=== PATIENT | male | born 2000 | race Caucasian/White ===

== ENCOUNTER 2022-08-17 07:31 | Inpatient (IN) | payer MEDICAID ==
[~2022-08-17] VITALS: Ht 160 cm; Wt 48.0 kg
[2022-08-17] MEDS ORDERED: LORazepam 2 MG/ML VIAL IVP ONE (07:45)
[2022-08-17] MEDS ORDERED: ONDANSETRON HCL 4 MG/2 ML VIAL IVP ONE (07:45)
[2022-08-17] MEDS ORDERED: SODIUM CHLORIDE 0.9% 1,000 ML IV ONE (07:45)
[2022-08-17 07:52] LABS: BASOPHILS % (AUTO) 0.2 % (0.0-2.0); EOSINOPHILS % (AUTO) 0.2 % (1.0-6.0); HEMATOCRIT 50.4 % (41-53); HEMOGLOBIN 17.4 g/dL (13.5-17.5); LYMPHOCYTES # (AUTO) 0.9 K/uL (1.0-4.8); LYMPHOCYTES % (AUTO) 4.9 % (22.0-44.0); MEAN CORPUSCULAR HEMOGLOBIN 30.7 pg (26.0-34.0); MEAN CORPUSCULAR HGB CONC 34.5 G/dL (31.0-37.0); MEAN CORPUSCULAR VOLUME 89 fL (80-100); MONOCYTES # (AUTO) 1.5 K/uL (0.1-1.0); MONOCYTES % (AUTO) 8.3 % (2.0-9.0); NEUTROPHILS # (AUTO) 15.1 K/uL (1.8-7.7); PLATELET COUNT (AUTO) 323 K/uL (150-450); RED BLOOD CELL COUNT(AUTO) 5.66 MIL/uL (4.50-5.90); RED CELL DISTRIBUTION WIDTH 13.7 % (11.5-14.5)
[2022-08-17 07:54] LABS: NEUTROPHILS % (AUTO) 86.4 % (40.0-70.0)
[2022-08-17 08:07] LABS: ANION GAP 29 mmol/L (8-16); CALCIUM, TOTAL 10.3 mg/dL (8.8-10.5); CARBON DIOXIDE 25 mmol/L (22-29); CHLORIDE 84 mmol/L (98-107); CREATININE 3.98 mg/dL (0.60-1.30); GLOMERULAR FILTR. RATE CALC 19 mL/min (>60); GLUCOSE,RANDOM 191 mg/dL (70-110); SODIUM SERUM 138 mmol/L (136-145); UREA NITROGEN, BLOOD 65 mg/dL (7-18)
[2022-08-17 08:12] LABS: ALANINE AMINOTRANSFERASE 29 U/L (12-78); ALBUMIN 6.1 g/dL (3.4-5.0); ALKALINE PHOSPHATASE 125 U/L (46-116); ASPARTATE AMINOTRANSFERASE 20 U/L (15-37); BILIRUBIN,TOTAL 2.2 mg/dL (0.1-1.0); LIPASE 62 U/L (73-393); TOTAL PROTEIN, SERUM 10.5 g/dL (6.4-8.2)
[2022-08-17] MEDS ORDERED: PIPERACILLIN/TAZO 3.375 GM/D5W 50 ML IV ONE (08:30)
[2022-08-17] MEDS ORDERED: 0.9% SODIUM CHLORIDE 10 ML SYRINGE IVP PRN (08:30)
[2022-08-17] MEDS ORDERED: SODIUM CHLORIDE 0.9% 1,450 ML IV ONE (08:30)
[2022-08-17 09:00] LABS: COVID AG,FIA SOURCE NASAL SWAB
[2022-08-17 09:12] LABS: ABG BASE EXCESS 4.8 mmol/L (-2.0-3.0); ABG CARBOXYHEMOGLOBIN 0.7 % (0.0-3.0); ABG HCO3 28.8 mmol/L (22.0-26.0); ABG OXYGEN CONTENT 19.8 mL/dL (15.0-23.0); ABG OXYGEN SATURATION 93.8 % (95.0-98.0); ABG OXYHEMOGLOBIN 93.1 % (94.0-100.0); ABG PCO2 35 mmHg (35-45); ABG TOTAL HEMOGLOBIN 15.1 G/dL (12.0-18.0); SOURCE, BLOOD GAS ARTERIAL; TEMPERATURE, FAHRENHEIT, BG 98.2 FAHREN (96.0-98.6)
[2022-08-17 09:13] LABS: SITE, BLOOD GAS LFT BRACHIAL
[2022-08-17 09:16] LABS: ACETONE,BLOOD NEGATIVE (NEGATIVE)
[2022-08-17 09:20] LABS: INR 1.2 (0.9-1.1); PROTHROMBIN TIME 12.5 SEC (9.4-11.6)
[2022-08-17 09:25] LABS: LACTIC ACID 6.6 mmol/L (0.4-2.0)
[2022-08-17] MEDS ORDERED: POTASSIUM CHLORIDE 20 MEQ ER TABLET PO ONE (09:30)
[2022-08-17] MEDS ORDERED: POTASSIUM CHL 10 MEQ/WATER 50 ML IV ONE (09:30)
[2022-08-17 09:35] LABS: INFLUENZA TYPE A NEGATIVE FOR TYPE A (NEGATIVE); INFLUENZA TYPE B NEGATIVE FOR TYPE B (NEGATIVE)
[2022-08-17 09:38] LABS: APPEARANCE,URINE CLEAR (CLEAR); BILIRUBIN,URINE NEGATIVE (NEGATIVE); GLUCOSE, URINE (UA) TRACE mg/dL (NEGATIVE); LEUKOCYTE ESTERASE ,URINE NEGATIVE (NEGATIVE); NITRATE,URINE NEGATIVE (NEGATIVE); OCCULT BLOOD,URINE SMALL (NEGATIVE); PH,URINE 5.5 (5.0-8.0); PROTEIN,URINE 100-200,SEE CONFIRM mg/dL (NEGATIVE); UROBILINOGEN,URINE <=1.0 mg/dL (<=1.0)
[2022-08-17 09:40] LABS: SALICYLATE < 0.2 mg/dL (2.8-20.0)
[2022-08-17 09:42] LABS: CREATINE KINASE, TOTAL ONLY 148 U/L (39-308)
[2022-08-17 09:43] LABS: ACETAMINOPHEN < 2 mcg/mL (10-30)
[2022-08-17 09:46] LABS: AMPHET/METH SCREEN,URINE NEGATIVE (NEGATIVE); BARBITURATE SCREEN, URINE NEGATIVE (NEGATIVE); BENZODIAZEPINES SCREEN,URINE NEGATIVE (NEGATIVE); CANNABINOID SCREEN,URINE POSITIVE (NEGATIVE); COCAINE SCREEN,URINE NEGATIVE (NEGATIVE); METHADONE SCREEN, URINE NEGATIVE (NEGATIVE); OPIATE SCREEN,URINE NEGATIVE (NEGATIVE); PHENCYCLIDINE SCREEN,URINE NEGATIVE (NEGATIVE)
[2022-08-17 09:53] LABS: SULFOSALICYLIC ACID,URINE Trace (Negative)
[2022-08-17 09:54] LABS: BACTERIA,URINE None Seen /HPF (None Seen); HYALINE CASTS, URINE 0-2 /LPF (None Seen); WBC,URINE 0-2 /HPF (0-5)
[2022-08-17 10:51] LABS: CALCIUM, TOTAL 8.3 mg/dL (8.8-10.5); CREATININE 2.83 mg/dL (0.60-1.30); POTASSIUM 3.1 mmol/L (3.5-5.1)
[2022-08-17 10:55] LABS: PHOSPHORUS 5.4 mg/dL (2.5-4.9)
[2022-08-17] MEDS ORDERED: ACETAMINOPHEN 325 MG TABLET PO PRN ×2 (11:00→13:30)
[2022-08-17] MEDS ORDERED: ONDANSETRON HCL 4 MG/2 ML VIAL IVP PRN ×2 (11:00→13:30)
[2022-08-17 13:30] VITALS: BP 110/68
[2022-08-17] MEDS ORDERED: MAGNESIUM SULFATE 2 GM, MVI, ADULT NO.1 WITH VIT K 10 ML, THIAMINE 100 MG, FOLIC ACID 1... IV ONE ×5 (13:30)
[2022-08-17] MEDS ORDERED: MAGNESIUM HYDROXIDE SUSPENSION 30 ML UDCUP PO PRN (13:30)
[2022-08-17] MEDS ORDERED: LORazepam 2 MG TABLET PO PRN (13:30)
[2022-08-17] MEDS ORDERED: ZOLPIDEM TARTRATE 5 MG TABLET PO PRN (13:30)
[2022-08-17] MEDS ORDERED: MORPHINE SULFATE 2 MG/ML SYRINGE IVP PRN (13:30)
[2022-08-17] MEDS ORDERED: HYDROCODONE/ACETAMINOPHEN 5-325 MG TABLET PO PRN (13:30)
[2022-08-17] MEDS ORDERED: BISACODYL 10 MG RECTAL RECTAL SUPPOSITORY PR PRN (13:30)
[2022-08-17 14:30] VITALS: BP 110/50
[2022-08-17] MEDS: POTASSIUM CHL 10 MEQ/WATER 50 ML IV SCH ×2 (14:55→16:44)
[2022-08-17] MEDS ORDERED: SODIUM CHLORIDE 0.9% 250 ML IV ONE (14:58)
[2022-08-17] MEDS ORDERED: POTASSIUM CHLORIDE 10 MEQ in SODIUM CHLORIDE 0.45% 1,000 ML IV SCH (15:00)
[2022-08-17 15:30] VITALS: BP 112/56
[2022-08-17] MEDS: HEPARIN SODIUM,PORCINE 5,000 UNITS/ML VIAL SQ SCH ×2 (16:00→23:57)
[2022-08-17 16:30] VITALS: BP 118/53
[2022-08-17 18:28] LABS: CALCIUM, TOTAL 8.6 mg/dL (8.8-10.5); CREATININE 2.28 mg/dL (0.60-1.30); POTASSIUM 3.9 mmol/L (3.5-5.1)
[2022-08-17 18:42] LABS: MAGNESIUM 3.3 mg/dL (1.80-2.40); PHOSPHORUS 4.6 mg/dL (2.5-4.9)
[2022-08-17 20:07] VITALS: BP 129/70
[2022-08-17] MEDS: PANTOPRAZOLE SODIUM 40 MG/VIAL IVP SCH (20:15)
[2022-08-17] MEDS: [UNRECOGNIZED DRUG - REMARK] IV SCH ×4 (20:15)
[2022-08-17] MEDS: DOCUSATE SODIUM 100 MG CAPSULE PO SCH (20:16)
[2022-08-17 23:45] VITALS: BP 126/68
[2022-08-18 04:29] VITALS: BP 116/63
[2022-08-18] MEDS: [UNRECOGNIZED DRUG - REMARK] IV SCH ×8 (06:02→16:28)
[2022-08-18] MEDS ORDERED: LORazepam 2 MG TABLET PO PRN (07:00)
[2022-08-18 08:05] VITALS: BP 123/60
[2022-08-18] MEDS: HEPARIN SODIUM,PORCINE 5,000 UNITS/ML VIAL SQ SCH ×2 (08:31→16:28)
[2022-08-18] MEDS: DOCUSATE SODIUM 100 MG CAPSULE PO SCH ×2 (08:32→20:08)
[2022-08-18] MEDS: LORazepam 2 MG TABLET PO SCH ×4 (08:32→20:05)
[2022-08-18] MEDS: PANTOPRAZOLE SODIUM 40 MG/VIAL IVP SCH ×2 (08:32→20:05)
[2022-08-18 09:01] LABS: MAGNESIUM 2.7 mg/dL (1.80-2.40)
[2022-08-18 09:15] LABS: BASOPHILS % (AUTO) 0.9 % (0.0-2.0); EOSINOPHILS % (AUTO) 0.4 % (1.0-6.0); HEMATOCRIT 38.5 % (41-53); HEMOGLOBIN 12.9 g/dL (13.5-17.5); LYMPHOCYTES # (AUTO) 1.6 K/uL (1.0-4.8); LYMPHOCYTES % (AUTO) 20.7 % (22.0-44.0); MEAN CORPUSCULAR HEMOGLOBIN 30.6 pg (26.0-34.0); MEAN CORPUSCULAR HGB CONC 33.4 G/dL (31.0-37.0); MEAN CORPUSCULAR VOLUME 92 fL (80-100); MONOCYTES # (AUTO) 0.8 K/uL (0.1-1.0); MONOCYTES % (AUTO) 10.4 % (2.0-9.0); NEUTROPHILS # (AUTO) 5.2 K/uL (1.8-7.7); NEUTROPHILS % (AUTO) 67.6 % (40.0-70.0); PLATELET COUNT (AUTO) 176 K/uL (150-450); RED CELL DISTRIBUTION WIDTH 13.3 % (11.5-14.5)
[2022-08-18 10:30] LABS: ALBUMIN 3.9 g/dL (3.4-5.0); CALCIUM, TOTAL 8.6 mg/dL (8.8-10.5); CREATININE 1.62 mg/dL (0.60-1.30); POTASSIUM 4.3 mmol/L (3.5-5.1); TOTAL PROTEIN, SERUM 6.6 g/dL (6.4-8.2)
[2022-08-18 11:59] VITALS: BP 117/60
[2022-08-18] MEDS ORDERED: BENZOCAINE/MENTHOL LOZENGE PO PRN (13:15)
[2022-08-18 15:59] VITALS: BP 100/61
[2022-08-18 19:19] VITALS: BP 103/59
[2022-08-19 00:01] VITALS: BP 114/52
[2022-08-19] MEDS: [UNRECOGNIZED DRUG - REMARK] IV SCH ×4 (02:53)
[2022-08-19 06:29] VITALS: BP 120/57
[2022-08-19 07:30] LABS: BASOPHILS % (AUTO) 0.6 % (0.0-2.0); HEMATOCRIT 36.4 % (41-53); HEMOGLOBIN 12.6 g/dL (13.5-17.5); LYMPHOCYTES # (AUTO) 1.6 K/uL (1.0-4.8); LYMPHOCYTES % (AUTO) 29.8 % (22.0-44.0); MEAN CORPUSCULAR HEMOGLOBIN 31.6 pg (26.0-34.0); MEAN CORPUSCULAR HGB CONC 34.5 G/dL (31.0-37.0); MEAN CORPUSCULAR VOLUME 92 fL (80-100); MONOCYTES # (AUTO) 0.5 K/uL (0.1-1.0); MONOCYTES % (AUTO) 9.9 % (2.0-9.0); NEUTROPHILS # (AUTO) 3.1 K/uL (1.8-7.7); NEUTROPHILS % (AUTO) 58.7 % (40.0-70.0); PLATELET COUNT (AUTO) 156 K/uL (150-450); RED BLOOD CELL COUNT(AUTO) 3.97 MIL/uL (4.50-5.90); RED CELL DISTRIBUTION WIDTH 13.2 % (11.5-14.5)
[2022-08-19 07:42] VITALS: BP 110/50
[2022-08-19 07:46] LABS: ANION GAP 7 mmol/L (8-16); CALCIUM, TOTAL 8.5 mg/dL (8.8-10.5); CARBON DIOXIDE 27 mmol/L (22-29); CHLORIDE 104 mmol/L (98-107); CREATININE 1.33 mg/dL (0.60-1.30); GLOMERULAR FILTR. RATE CALC > 60 mL/min (>60); GLUCOSE,RANDOM 83 mg/dL (70-110); POTASSIUM 4.8 mmol/L (3.5-5.1); SODIUM SERUM 138 mmol/L (136-145); UREA NITROGEN, BLOOD 27 mg/dL (7-18)
[2022-08-19] MEDS: PANTOPRAZOLE SODIUM 40 MG/VIAL IVP SCH (08:21)
[2022-08-19] MEDS: LORazepam 2 MG TABLET PO SCH ×2 (08:21→13:00)
[2022-08-19] MEDS: HEPARIN SODIUM,PORCINE 5,000 UNITS/ML VIAL SQ SCH ×2 (08:21)
[2022-08-19] MEDS: DOCUSATE SODIUM 100 MG CAPSULE PO SCH (08:21)
[2022-08-19] MEDS ORDERED: CHLO5CAP4 PO (09:57)
[2022-08-19] MEDS ORDERED: PANT-31 PO (10:02)
[2022-08-19] MEDS ORDERED: METO5TAB95 PO (10:02)
[2022-08-19 11:01] VITALS: BP 151/85
[2022-08-20] MEDS ORDERED: LORazepam 1 MG TABLET PO PRN (07:00)
[2022-08-20] MEDS ORDERED: LORazepam 1 MG TABLET PO SCH (09:00)
[2022-08-21] MEDS ORDERED: LORazepam 1 MG TABLET PO PRN (07:00)
== END 2022-08-19 15:16 | disposition home or self-care (01) | DRG 241 ==
LOC: EMS 07:31 → EDBD 07:31 → 5S 12:22
PROVIDERS: ADMIT Internal Medicine; ATTEND Internal Medicine
DX: K29.20 Alcoholic gastritis without bleeding (principal); N17.0 Acute kidney failure with tubular necrosis; R65.11 Systemic inflammatory response syndrome (SIRS) of non-infectious origin with acute organ dysfunction; F10.239 Alcohol dependence with withdrawal, unspecified; E87.3 Alkalosis; E86.0 Dehydration; E87.6 Hypokalemia; Y90.9 Presence of alcohol in blood, level not specified; D72.829 Elevated white blood cell count, unspecified; F41.9 Anxiety disorder, unspecified; Z20.822 Contact with and (suspected) exposure to COVID-19
CPT/HCPCS: 36600; 71045; 76770; 80048; 80053; 80307; 81001; 81002; 82009; 82550; 82570; 82805; 83605; 83690; 83735; 84100; 84145; 84300; 84484; 84540; 85025; 85610; 85730; 87040; 87804; 93005; 99291; C9113; G0480; G0481; J1644; J2060; J2405; J2543; J3411; J3475; J3480; J3490; J7030; J7050; 36415-L1; 36415-TC

== ENCOUNTER 2024-09-06 15:11 | Emergency (ER) | payer MEDICAID ==
[~2024-09-06] VITALS: Ht 157.5 cm; Wt 59.0 kg
[~2024-09-06 15:11] MED LIST: CHLO5CAP4 PO; METO5TAB95 PO; PANT-31 PO
[2024-09-06 15:19] VITALS: TEMP 98.7
[2024-09-06 16:12] LABS: BASOPHILS % (AUTO) 0.3 % (0.0-2.0); EOSINOPHILS % (AUTO) 0.1 % (1.0-6.0); HEMATOCRIT 43.9 % (41-53); HEMOGLOBIN 14.6 g/dL (13.5-17.5); LYMPHOCYTES # (AUTO) 0.4 K/uL (1.0-4.8); LYMPHOCYTES % (AUTO) 5.8 % (22.0-44.0); MEAN CORPUSCULAR HGB CONC 33.1 G/dL (31.0-37.0); MEAN CORPUSCULAR VOLUME 94 fL (80-100); MONOCYTES # (AUTO) 0.2 K/uL (0.1-1.0); MONOCYTES % (AUTO) 2.5 % (2.0-9.0); NEUTROPHILS # (AUTO) 6.3 K/uL (1.8-7.7); PLATELET COUNT (AUTO) 246 K/uL (150-450); WHITE BLOOD COUNT (AUTO) 6.9 K/uL (4.5-11.0)
[2024-09-06 16:15] LABS: NEUTROPHILS % (AUTO) 91.3 % (40.0-70.0)
[2024-09-06 16:21] LABS: SODIUM SERUM 139 mmol/L (136-145)
[2024-09-06 16:22] LABS: ANION GAP 13 mmol/L (8-16); CALCIUM, TOTAL 9.5 mg/dL (8.8-10.5); CARBON DIOXIDE 24 mmol/L (22-29); CHLORIDE 103 mmol/L (98-107); CREATININE 0.72 mg/dL (0.60-1.30); GLOMERULAR FILTR. RATE CALC > 60 mL/min (>60); GLUCOSE,RANDOM 117 mg/dL (70-110); LIPASE 73 U/L (16-77); POTASSIUM 4.6 mmol/L (3.5-5.1); UREA NITROGEN, BLOOD 15 mg/dL (7-18)
[2024-09-06] MEDS: METOCLOPRAMIDE HCL 5 MG/ML 2 ML VIAL IVP ONE (19:15)
[2024-09-06] MEDS: SODIUM CHLORIDE 0.9% 1,000 ML IV ONE (19:15)
[2024-09-06 22:33] LABS: APPEARANCE,URINE CLEAR (CLEAR); BILIRUBIN,URINE NEGATIVE (NEGATIVE); COLOR,URINE YELLOW (YELLOW); GLUCOSE, URINE (UA) TRACE mg/dL (NEGATIVE); KETONES,URINE 40-60 mg/dL (NEGATIVE); LEUKOCYTE ESTERASE ,URINE NEGATIVE (NEGATIVE); NITRATE,URINE NEGATIVE (NEGATIVE); OCCULT BLOOD,URINE NEGATIVE (NEGATIVE); PROTEIN,URINE 30-70 mg/dL (NEGATIVE); SPECIFIC GRAVITIY, URINE 1.019 (1.003-1.030); UROBILINOGEN,URINE <=1.0 mg/dL (<=1.0)
[2024-09-06 22:48] LABS: ALCOHOL, URINE DRUG SCREEN POSITIVE (NEGATIVE); AMPHET/METH SCREEN,URINE NEGATIVE (NEGATIVE); BARBITURATE SCREEN, URINE NEGATIVE (NEGATIVE); BENZODIAZEPINES SCREEN,URINE NEGATIVE (NEGATIVE); CANNABINOID SCREEN,URINE POSITIVE (NEGATIVE); COCAINE SCREEN,URINE NEGATIVE (NEGATIVE); METHADONE SCREEN, URINE NEGATIVE (NEGATIVE); OPIATE SCREEN,URINE NEGATIVE (NEGATIVE); PHENCYCLIDINE SCREEN,URINE NEGATIVE (NEGATIVE)
[2024-09-06] MEDS: HALOPERIDOL LACTATE 5 MG/ML VIAL IVP ONE (22:57)
[2024-09-06 23:20] VITALS: BP 130/82; PULSE 65; RESP 18; O2SAT 96
[2024-09-06] MEDS: FAMOTIDINE 20 MG/2 ML VIAL IVP ONE (23:28)
[2024-09-06] MEDS ORDERED: ACET-66 PO (23:59)
[2024-09-06] MEDS ORDERED: IBUP-1554 PO (23:59)
[2024-09-06] MEDS ORDERED: ONDA-104 PO (23:59)
== END 2024-09-07 02:55 | disposition home or self-care (01) ==
LOC: EMS 15:11
DX: S50.01XA Contusion of right elbow, initial encounter (principal); F12.90 Cannabis use, unspecified, uncomplicated; E86.0 Dehydration; F10.90 Alcohol use, unspecified, uncomplicated; X58.XXXA Exposure to other specified factors, initial encounter; Y93.55 Activity, bike riding; Y92.89 Other specified places as the place of occurrence of the external cause; Y99.8 Other external cause status; Y90.9 Presence of alcohol in blood, level not specified
CPT/HCPCS: 99285; 96374; 96361; 96375; 80048; 81003; 83690; 85025; 36415; 73080; 93005; 80307; G0480; J3490; J1630; J2765; J7030; 29105; 29240